=== PATIENT | female | born 1960 | race Caucasian/White ===

== ENCOUNTER 2018-05-30 06:46 | Emergency (ER) | payer OTHER ==
--- NOTE | 2018-05-30 08:06 | RAD REPORT ---
EXAM DESCRIPTION: CT - [id number] - 05/30/2018 7:40 am CLINICAL HISTORY: Fall, head and neck injury COMPARISON: None. TECHNIQUE: Axial 5 mm thick images of the head were obtained. Axial 2 mm thick images of the cervic al spine were obtained with sagittal and coronal reconstruction images generated and reviewed. All CT scans are performed using dose optimization technique as appropriate and may include automated exposure control or mA/KV adjustment according to patient size. FINDINGS: No intracranial hemorrhage, mass, edema or acute intracranial finding. No suspicion for acute infarct ion. No extra-axial fluid collections. Mastoid air cells and paranasal sinuses are clear. No globe or orbit abnormality seen. Posterior scalp hematoma is present. Cervical bodies are normal in height. No subluxation abnormality. There is reversal of the usual cerv ical lordosis spanning C5-C7. C5-6 and C6-7 disc space narrowing and degenerative endplate spurring c hanges are present. Mild C5-6 bony foraminal encroachment seen. Scattered facet joint degenerative ch anges are present. This is most notable on the right at C4-5. No other disc space narrowing. No fract ure or acute bony abnormality. Central canal detail is inherently limited. No paraspinal mass or hematoma. Patient does have a few small nonspecific cervical lymph nodes. IMPRESSION: Small posterior scalp hematoma with no fracture. No hemorrhage or acute intracranial fin ding. Cervical spine degenerative change with no fracture or acute finding.
--- NOTE | 2018-05-30 08:11 | RAD REPORT ---
EXAM DESCRIPTION: CT - Spine Lumbar Wo Con - 05/30/2018 7:55 am CLINICAL HISTORY: Fall, back pain, radiculopathy COMPARISON: None. TECHNIQUE: Thin section axial imaging of the lumbar spine was performed from mid T12 through the vin cyx. Sagittal and coronal reconstruction images were generated and reviewed. All CT scans are performed using dose optimization technique as appropriate and may include automated exposure control or mA/KV adjustment according to patient size. FINDINGS: Lumbar bodies are normal in height. There is a very slight retrolisthesis of L4 on L5 rela eleazar to facet degenerative change. L5-S1 disc space is narrowed and there is degenerative changes to t he endplates. No compression fracture. No lytic, sclerotic or expansile bony destructive process. No paraspinal mass is identifiable. There are no pars defects. Facet degenerative changes present throug hout the lumbar spine. This is most pronounced at L5-S1. Central canal is borderline stenotic at L5-S 1 and there is mild bilateral foraminal encroachment. No gross evidence for disc herniation. CT has i nherent limitation regarding Central canal detail. IMPRESSION: No compression fracture or acute lumbar spine finding. Patient does have bone and disc degenerative change with borderline spinal stenosis and mild bilatera l foraminal encroachment at L5-S1.
--- NOTE | 2018-05-30 08:52 | EDPHYS ---
Physician Documentation [facility] Name: Jenna Barrow Age: 58 yrs Sex: Female : 1960 Arrival Date: 05/30/2018 Time: 06:48 Bed 13 Private MD: ED Physician Jocelyn Cordero HPI: 05/30 07:19 This 58 yrs old Female presents to ER via Ambulatory with complaints of Fall ma2 Injury. 07:19 Details of fall: The patient fell from an upright position, and struck a concrete ma2 surface. Onset: The symptoms/episode began/occurred suddenly, 1 hour(s) ago. Associated injuries: The patient sustained injury to the head. Severity of symptoms: At their worst the symptoms were moderate. Unable to obtain HPI due to. The patient has not experienced similar symptoms in the past. tripped and fell backward . Historical: - Allergies: 07:04 Sulfa (Sulfonamide Antibiotics); aa5 - PMHx: 07:04 Breast Cancer; aa5 - PSHx: 07:04 R lumpectomy; Edu breast reconstruction; Tummy tuck; L knee; aa5 - Immunization history:: Adult Immunizations. - Social history:: Patient/guardian denies using alcohol, street drugs, The patient lives with family, Smoking status: . - Ebola Screening: : No symptoms or risks identified at this time. - Family history:: not pertinent. ROS: 07:19 Constitutional: Negative for fever, chills, and weight loss, Cardiovascular: Negative ma2 for chest pain, palpitations, and edema, Respiratory: Negative for shortness of breath, cough, wheezing, and pleuritic chest pain, Abdomen/GI: Negative for abdominal pain, nausea, diarrhea, and constipation, Neuro: Negative for headache, weakness, numbness, tingling, and seizure. 07:19 MS/extremity: Positive for lower lumbar tenderness, has occipital scalp hematoma, neck tenderness over left side. Exam: 07:19 Constitutional: This is a well developed, well nourished patient who is awake, alert, ma2 and in no acute distress. Chest/axilla: Normal chest wall appearance and motion. Nontender with no deformity. No lesions are appreciated. Cardiovascular: Regular rate and rhythm with a normal S1 and S2. No gallops, murmurs, or rubs. Normal PMI, no JVD. No pulse deficits. Respiratory: Lungs have equal breath sounds bilaterally, clear to auscultation and percussion. No rales, rhonchi or wheezes noted. No increased work of breathing, no retractions or nasal flaring. 07:19 Neuro: Awake and alert, GCS 15, oriented to person, place, time, and situation. Cranial nerves II-XII grossly intact. Motor strength 5/5 in all extremities. Sensory grossly intact. Cerebellar exam normal. Normal gait. 07:19 Head/face: occipital head hematoma, left sided neck tenderness, L3 tenderness . Vital Signs: 07:12 BP 140 / 94; Pulse 63; Resp 18; Temp 98.1(O); Pulse Ox 100% on R/A; tw2 08:11 BP 123 / 83; Pulse 67; Resp 18; Pulse Ox 100% on R/A; tw2 09:00 BP 131 / 82; Pulse 66; Resp 17; Pulse Ox 100% on R/A; tw2 MDM: 07:11 Patient medically screened. [email or web address] 07:19 Differential diagnosis: closed head injury, contusion, fracture, sprain, strain. la2 08:50 Data reviewed: vital signs, nurses notes, radiologic studies. Response to treatment: ma2 the patient's symptoms have markedly improved after treatment. 05/30 07:18 Order name: CT Head C Spine; Complete Time: 08:49 la2 05/30 07:18 Order name: CT Lumbar Spine Wo Con; Complete Time: 08:49 la2 05/30 08:55 Order name: Ice pack; Complete Time: 08:56 tw2 Administered Medications: 08:55 Drug: Motrin 800 mg Route: PO; tw2 09:00 Follow up: Response: No adverse reaction tw2 Disposition: 05/30/18 08:51 Discharged to Home. Impression: Acute post-traumatic headache. - Condition is Stable. - Medication Reconciliation Form, Thank You Letter, Antibiotic Education, Prescription Opioid Use form. - Follow up: Private Physician; When: Tomorrow; Reason: Continuance of care. - Problem is new. - Symptoms are unchanged. Signatures: Dispatcher [employer] Jesica Brown RN RN aa5 Jina Atkins RN RN tw2 Jocelyn Cordero MD MD ma2 Corrections: (The following items were deleted from the chart) 09:01 08:51 05/30/2018 08:51 Discharged to Home. Impression: Acute post-traumatic headache. tw2 Condition is Stable. Forms are Medication Reconciliation Form, Thank You Letter, Antibiotic Education, Prescription Opioid Use. Follow up: Private Physician; When: Tomorrow; Reason: Continuance of care. Problem is new. Symptoms are unchanged. ma2
--- NOTE | 2018-05-30 08:52 | ER ---
Nurse's Notes [facility] Name: Jenna Barrow Age: 58 yrs Sex: Female : 1960 Arrival Date: 05/30/2018 Time: 06:48 Bed 13 Private MD: Diagnosis: Acute post-traumatic headache Presentation: 05/30 07:04 Presenting complaint: Presenting complaint: Patient states: "I tripped over a shoe and aa5 fell back and hit my head on hardwood floor". Pt states "I have a knot on the back of my head and it's sore". Denies LOC. 07:04 Care prior to arrival: None. Mechanism of Injury: Fall from standing position. Trauma aa5 event details: Injury occurred in the [facility], Injury occurred: at home. Injury occurred: May 30, 2018 Injury occurred at: 05:30. 07:04 Acuity: ARI 4 aa5 07:04 Method Of Arrival: Ambulatory aa5 07:15 Transition of care: patient was not received from another setting of care. Onset of tw2 symptoms was May 30, 2018. Risk Assessment: Do you want to hurt yourself or someone else? Patient reports no desire to harm self or others. Initial Sepsis Screen: Does the patient meet any 2 criteria? No. Patient's initial sepsis screen is negative. Does the patient have a suspected source of infection? No. Patient's initial sepsis screen is negative. Trauma Activation: Not Applicable Physician: ED Physician; Name: ; Notified At: ; Arrived At: Physician: General Surgeon; Name: ; Notified At: ; Arrived At: Physician: Radiology; Name: ; Notified At: ; Arrived At: Physician: Respiratory; Name: ; Notified At: ; Arrived At: Physician: Lab; Name: ; Notified At: ; Arrived At: Historical: - Allergies: 07:04 Sulfa (Sulfonamide Antibiotics); aa5 - PMHx: 07:04 Breast Cancer; aa5 - PSHx: 07:04 R lumpectomy; Edu breast reconstruction; Tummy tuck; L knee; aa5 - Immunization history:: Adult Immunizations. - Social history:: Patient/guardian denies using alcohol, street drugs, The patient lives with family, Smoking status: . - Ebola Screening: : No symptoms or risks identified at this time. - Family history:: not pertinent. Screenin:12 Abuse screen: Denies threats or abuse. Nutritional screening: No deficits noted. tw2 Tuberculosis screening: No symptoms or risk factors identified. Fall Risk None identified. Assessment: 07:10 General: Appears in no apparent distress. well groomed, Behavior is calm, cooperative, tw2 appropriate for age. Pain: Complains of pain in left parietal area and right parietal area. Neuro: Level of Consciousness is awake, alert, obeys commands, Oriented to person, place, time, situation. Cardiovascular: Heart tones S1 S2 Capillary refill < 3 seconds Patient's skin is warm and dry. Respiratory: Airway is patent Respiratory effort is even, unlabored, Respiratory pattern is regular, symmetrical, Breath sounds are clear bilaterally. GI: No signs and/or symptoms were reported involving the gastrointestinal system. Abdomen is round non-distended, Bowel sounds present X 4 quads. : No signs and/or symptoms were reported regarding the genitourinary system. EENT: No signs and/or symptoms were reported regarding the EENT system. Derm: Reports "lump on the back of my head where i hit the floor". Musculoskeletal: Circulation, motion, and sensation intact. Range of motion: intact in all extremities. 08:12 Reassessment: Patient appears in no apparent distress at this time. No changes from tw2 previously documented assessment. Patient and/or family updated on plan of care and expected duration. Pain level reassessed. Patient is alert, oriented x 3, equal unlabored respirations, skin warm/dry/pink. 09:00 Reassessment: Patient appears in no apparent distress at this time. No changes from tw2 previously documented assessment. Patient and/or family updated on plan of care and expected duration. Pain level reassessed. Patient is alert, oriented x 3, equal unlabored respirations, skin warm/dry/pink. Vital Signs: 07:12 BP 140 / 94; Pulse 63; Resp 18; Temp 98.1(O); Pulse Ox 100% on R/A; tw2 08:11 BP 123 / 83; Pulse 67; Resp 18; Pulse Ox 100% on R/A; tw2 09:00 BP 131 / 82; Pulse 66; Resp 17; Pulse Ox 100% on R/A; tw2 ED Course: 06:48 Patient arrived in ED. ds1 07:04 Arm band placed on Patient placed in an exam room, on a stretcher. aa5 07:10 Triage completed. aa5 07:10 Jina Atkins, RN is Primary Nurse. tw2 07:11 Jocelyn Cordero MD is Attending Physician. ma2 07:13 Bed in low position. Call light in reach. Pulse ox on. NIBP on. Warm blanket given. tw2 Head of bed towel behind neck. 07:39 CT completed. Patient tolerated procedure well. Patient moved back from CT. cw1 07:40 CT Head C Spine In Process Unspecified. EDMS 07:43 CT Lumbar Spine Wo Con In Process Unspecified. EDMS 08:56 Ice pack to injury. instructions for 10 minutes icing then 10 minutes off. tw2 09:00 No provider procedures requiring assistance completed. Patient did not have IV access tw2 during this emergency room visit. Administered Medications: 08:55 Drug: Motrin 800 mg Route: PO; tw2 09:00 Follow up: Response: No adverse reaction tw2 Outcome: 08:51 Discharge ordered by . ma2 09:00 Discharged to home ambulatory. tw2 09:00 Condition: stable 09:00 Discharge instructions given to patient, Instructed on discharge instructions, follow up and referral plans. Demonstrated understanding of instructions, follow-up care. 09:01 Patient left the ED. tw2 Signatures: Dispatcher [employer] [facility] Shruthi Henry ds1 Jesica Auguste, RN RN Lala Angel cw1 Jina Atkins, EVERT RN tw2 Jocelyn Cordero MD MD [facility]
[2018-05-30] MEDS ORDERED: IBUPROFEN 400 MG TAB ONE (08:57)
== END 2018-05-30 09:01 | disposition home or self-care (01) ==
LOC: ER 06:46
DX: G44.309 Post-traumatic headache, unspecified, not intractable (principal); W01.198A Fall on same level from slipping, tripping and stumbling with subsequent striking against other object, initial encounter; Y93.89 Activity, other specified; Y92.9 Unspecified place or not applicable; Z88.2 Allergy status to sulfonamides; Z85.3 Personal history of malignant neoplasm of breast
CPT/HCPCS: 70450; 72125; 72131; 99284